=== PATIENT | female | born 1965 | race Caucasian/White ===

== ENCOUNTER → 2017-01-31 | Outpatient (CLI) | payer OTHER ==
[~2017-01-31] MED LIST: OMNIPAQUE 350 MG/ML, 100ML BOTTLE ONE
== END | disposition home or self-care (01) ==
LOC: RAD 14:35
PROVIDERS: ATTEND Nurse Practitioner Family
DX: K76.0 Fatty (change of) liver, not elsewhere classified (principal); K82.0 Obstruction of gallbladder; K44.9 Diaphragmatic hernia without obstruction or gangrene
CPT/HCPCS: 74160; Q9967